=== PATIENT | female | born 1980 | race African-American/Black ===

== ENCOUNTER 2017-10-18 14:59 | Inpatient (IN) | payer SELFPAY ==
[2017-10-18] MEDS ORDERED: diphenhydrAMINE 25 MG CAP ONE (15:28)
[2017-10-18] MEDS ORDERED: cloNIDine 0.1 MG TAB ONE (15:28)
[2017-10-18] MEDS ORDERED: Metoclopramide HCl 10 MG/2 ML VIAL ONE (15:28)
[2017-10-18 17:39] LABS: Troponin I 0.017 ng/mL (< 0.028)
[2017-10-18] MEDS ORDERED: Acetaminophen 325 MG TAB PO PRN (17:48)
--- NOTE | 2017-10-18 17:48 | PDOC.EVN ---
Event Note - Event Note Event Note: [id number] H&P Dictated 1. HTN urgency 2. Abnormal EKG 3. GELA plan: see orders
--- NOTE | 2017-10-18 19:25 | ULT ---
RENAL ULTRASOUND 10/18/17 INDICATION: Acute renal insufficiency. FINDINGS: No overt hydronephrosis of either kidney. Left kidney measures 10 cm in length and right kidney 8.5 c m in length as demonstrated. There is no overt hydronephrosis. The urinary bladder is not reliably as sessed as it is incompletely distended on the basis of this exam. IMPRESSION: 1. No overt hydronephrosis. 2. Small sized kidneys. Correlate clinically. POS: [facility]
[2017-10-18 19:50] VITALS: BMI 34.1
[2017-10-18] MEDS ORDERED: Sodium Chloride 0.9% 10 ML ONE (20:16)
[2017-10-18 20:28] LABS: Troponin I 0.025 ng/mL (< 0.028)
[2017-10-18] MEDS: Sodium Chloride 0.9% 1,000 ML IV SCH (20:54)
[2017-10-18] MEDS: Heparin 5,000 UNITS/ML VIAL SC SCH (20:55)
--- NOTE | 2017-10-18 23:13 | HP ---
DATE OF ADMISSION: 10/18/2017 CHIEF COMPLAINT: Headache. HISTORY OF PRESENT ILLNESS: The patient is a 37-year-old female with past medical history of hyperte nsion, currently not taking any medications, came today complaining of headache. Headache started al l of a sudden, left-sided headache for the last 2 days, and a dull kind of headache, moderate in inte nsity, currently 4/10. Denies any radiation. Pain is improving. Denies any nausea. Denies any vom iting. Denies any weakness. Denies any dizziness. Denies any blurred vision. The patient initiall y went to the outside ER and the patient was found to have elevated blood pressure, so the patient wa s transferred here. The patient denies any chest pain. Denies any palpitations. PAST MEDICAL HISTORY: Hypertension. PAST SURGICAL HISTORY: Tubal ligation, breast reduction. 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 SOCIAL HISTORY: Positive for alcohol. Denies smoking. Denies drugs. REVIEW OF SYSTEMS: Constitutional: Denies any fever. Denies any chills. Eyes: No vision problem. Ears: Denies hear ing loss. Neck: Denies any neck pain. Cardiovascular: Denies any chest pain. Denies any palpitat ions. Respiratory: Denies any cough or sputum production. Gastrointestinal: Denies nausea or vomi ting. Musculoskeletal: Denies any joint deformities. Cranial nerve system: Positive for headache. Psychiatric: Denies anxiety. All other review of systems are reviewed and are negative. PHYSICAL EXAMINATION: CONSTITUTIONAL/VITAL SIGNS: At the time of H&P performed, blood pressure was 137/80, afebrile, respi ratory rate 18, pulse ox 97%. GENERAL: The patient appears comfortable. HEENT: Pupils equal, round, and reactive. Anterior nares patent. Nose normal. Ears normal. Teeth intact. Tongue is moist. NECK: Supple. No JVD. CARDIOVASCULAR: S1, S2 present. Regular rate and rhythm. No murmurs, no rubs, no gallops. RESPIRATORY: No wheezing, no rhonchi. Breath sounds bilaterally. GASTROINTESTINAL: Abdomen is soft, nontender. No guarding, no rebound, no masses felt. MUSCULOSKELETAL: No edema. CRANIAL NERVE SYSTEM: Cranial nerves intact. Follows commands. Strength intact. Sensory intact. PSYCHIATRIC: Mood is appropriate at this time. INTEGUMENTARY: No rashes seen. LABORATORY DATA: Labs at the time of H&P performed showed troponin 0.017. BMP showed sodium 138, po tassium 3.8, chloride 103, CO2 of 23, BUN of 13, creatinine 1.81. Urine negative. White c ount 8.2, hemoglobin 13.3, platelet count 219. EKG showed T-wave inversions in V4, V5, V6. ASSESSMENT AND PLAN: The patient is a 37-year-old female. 1. Hypertension, uncontrolled. Plan to start the patient on blood pressure medications. Plan to mo nitor blood pressure closely. 2. Abnormal EKG, might be secondary to this elevated blood pressure. We will check serial cardiac e nzymes. We will check 2D echo to evaluate LV function. 3. Acute kidney injury. Monitor creatinine closely. Repeat BMP in a.m. Continue IV fluids. Plan to check renal ultrasound. 4. Headache. CT head is negative for acute disease. We will monitor the patient closely. Case was discussed in detail with the patient.
[2017-10-19 00:41] LABS: Creatinine, Urine 404.33 mg/dL (47-110)
[2017-10-19 01:05] LABS: Bacteria/HPF Rare-Few HPF (None Seen); RBC/HPF 0-3 HPF (0-3); Squamous Epithelial 0-3 HPF (0-3); WBC/HPF 0-3 HPF (0-3)
[2017-10-19 05:20] LABS: #Basophils 0.1 thou/uL (0.0-0.2); #Eosinphils 0.1 thou/uL (0.0-0.7); #Lymphocytes 2.6 thou/uL (1.20-3.40); #Monocytes 0.5 thou/uL (0.11-0.59); #Neutrophils 3.7 thou/uL (1.40-6.50); %Basophils 1.1 % (0.0-1.0); %Eosinophils 1.1 % (0.0-10.0); %Lymphocytes 37.9 % (21.0-51.0); %Monocytes 7.1 % (0.0-10.0); %Neutrophils 52.8 % (42.0-75.0); Hemoglobin 10.4 g/dL (12.0-16.0); Mean Corpuscular HGB CONC 35.3 g/dL (32.0-36.0); Mean Corpuscular Hemoglobin 29.5 pg (27.0-31.0); Mean Corpuscular Volume 83.6 fl (81.0-99.0); Mean Platelet Volume 7.9 fL (7.4-10.4); Platelet Count 211 thou/uL (130-400); RBC Distribution Width 13.1 % (11.5-14.5); Red Blood Cell (RBC) Count 3.53 mill/uL (4.20-5.40); White Blood Cell (WBC) Count 6.9 thou/uL (4.8-10.8)
[2017-10-19 05:44] LABS: Anion Gap 7 mmol/L (10-20); BUN (Urea Nitrogen) 17 mg/dL (7.0-18.7); Calc. Creatinine Clearance 68 mL/min (70-130); Calcium 8.3 mg/dL (7.8-10.44); Carbon Dioxide 24 mmol/L (22-29); Chloride 108 mmol/L (98-107); Estimated GFR-MDRD 39; Glucose 104 mg/dL (70-105); Potassium 3.4 mmol/L (3.5-5.1); Sodium 136 mmol/L (136-145)
[2017-10-19] MEDS: Carvedilol 6.25 MG TAB PO SCH ×2 (08:50→16:54)
[2017-10-19] MEDS: Lisinopril 5 MG TAB PO SCH (08:50)
[2017-10-19] MEDS: Heparin 5,000 UNITS/ML VIAL SC SCH ×3 (08:51→19:59)
[2017-10-19] MEDS ORDERED: Amlodipine 5 MG TAB PO SCH (09:00)
[2017-10-19] MEDS: hydrALAZINE 20 MG/ML VIAL SLOW IVP PRN (14:14)
--- NOTE | 2017-10-19 15:17 | PDOC.PN ---
- Subjective Encounter Start Date: 10/19/17 Encounter Start Time: 15:15 Subjective: feels better.reprots that she stopped taking lisinopril few months ago - Objective MAR Reviewed: Yes Vital Signs & Weight: Vital Signs (12 hours) Temp Pulse Resp BP Pulse Ox 10/19/17 11:25 98.7 F 70 16 162/101 H 96 10/19/17 08:53 98.6 F 87 18 100 10/19/17 08:49 98.6 F 87 18 177/103 H 100 10/19/17 04:00 98.7 F 74 18 152/94 H 99 Weight Weight 216 lb 4.8 oz I&O: 10/18/17 10/19/17 10/20/17 06:59 06:59 06:59 Intake Total 1383 Output Total 950 Balance 433 Result Diagrams: 10/19/17 04:53 10/19/17 04:53 Phys Exam - Physical Examination Constitutional: NAD HEENT: PERRLA, moist MMs, sclera anicteric, oral pharynx no lesions Neck: no nodes, no JVD, supple, full ROM Respiratory: no wheezing, no rales, no rhonchi, clear to auscultation bilateral Cardiovascular: RRR, no significant murmur Gastrointestinal: soft, non-tender, no distention, positive bowel sounds Musculoskeletal: no edema, pulses present Neurological: non-focal, normal sensation, moves all 4 limbs Psychiatric: normal affect, A&O x 3 Skin: no rash Dx/Plan (1) Hypertensive urgency Code(s): I16.0 - HYPERTENSIVE URGENCY Status: Acute (2) [id number] kidney injury Code(s): N17.9 - ACUTE KIDNEY FAILURE, UNSPECIFIED; N18.9 - CHRONIC KIDNEY DISEASE, UNSPECIFIED Status: Acute Qualifiers: Chronic kidney disease stage: stage 2 (mild) (3) Obesity (BMI 30.0-34.9) Code(s): E66.9 - OBESITY, UNSPECIFIED Status: Acute - Plan out of bed/ambulate, DVT proph w/SCDs BP still very high.change Amlodipine to lisinopri as it is affordable carola -: cont coreg.adjust ads needed -: renal US c/w CKD.pt educated to f/u w PCP & Renal if possible. -: angelica Hypertensive nephropathy -: add prn anti-hypertensives but prevent aggressive lowering of BP * .cont to monitor closely Review of Systems - Review of Systems Constitutional: negative: fever, chills, sweats, weakness, malaise, other ENT: negative: Ear Pain, Ear Discharge, Nose Pain, Nose Discharge, Nose Congestion, Mouth Pain, Mouth Swelling, Throat Pain, Throat Swelling, Other Respiratory: negative: Cough, Dry, Shortness of Breath, Hemoptysis, SOB with Excertion, Pleuritic Pain, Sputum, Wheezing Cardiovascular: negative: chest pain, palpitations, orthopnea, paroxysmal nocturnal dyspnea, edema, light headedness, other Gastrointestinal: negative: Nausea, Vomiting, Abdominal Pain, Diarrhea, Constipation, Melena, Hematochezia, Other Genitourinary: negative: Dysuria, Frequency, Incontinence, Hematuria, Retention , Other Musculoskeletal: negative: Neck Pain, Shoulder Pain, Arm Pain, Back Pain, Hand Pain, Leg Pain, Foot Pain, Other Skin: negative: Rash, Lesions, Tye, Bruising, Other Neurological: negative: Weakness, Numbness, Incoordination, Change in Speech, Confusion, Seizures, Other - Medications/Allergies Allergies/Adverse Reactions: Allergies Allergy/AdvReac Type Severity Reaction Status Date / Time No Known Allergies Allergy Verified 10/18/17 20:47 Medications: Current Medications Acetaminophen (Tylenol) 650 mg PO Q4H PRN PRN Reason: Headache/Fever or Pain Last Admin: 10/19/17 14:15 Dose: 650 mg Carvedilol (Coreg) 6.25 mg PO BID-[facility] Last Admin: 10/19/17 08:50 Dose: 6.25 mg Heparin Sodium (Porcine) (Heparin) 5,000 units SC TID [facility] Last Admin: 10/19/17 08:51 Dose: Not Given Hydralazine HCl (Apresoline) 10 mg SLOW IVP Q4H PRN PRN Reason: SBP Greater Than 170 Last Admin: 10/19/17 14:14 Dose: 10 mg Sodium Chloride (Normal Saline 0.9%) 1,000 mls @ 50 mls/hr IV .Q20H [facility] Last Admin: 10/18/17 20:54 Dose: 1,000 mls Lisinopril (Zestril) 5 mg PO DAILY [facility] Last Admin: 10/19/17 08:50 Dose: 5 mg Ondansetron HCl (Zofran) 4 mg IVP Q6H PRN PRN Reason: Nausea/Vomiting
--- NOTE | 2017-10-19 15:37 | EKG ---
Test Reason : Blood Pressure : / mmHG Vent. Rate : 094 BPM Atrial Rate : 094 BPM P-R Int : 150 ms QRS Dur : 072 ms QT Int : 346 ms P-R-T Axes : 029 006 -28 degrees QTc Int : 432 ms Normal sinus rhythm Possible Left atrial enlargement Left ventricular hypertrophy Nonspecific T wave abnormality Abnormal ECG Confirmed by DEON VEGA, HUA Freedman ([id number]), acquisition editor MARILYN REDDY ([id number]) on 10/19/2017 3:37:02 PM Referred By: Confirmed By:HUA CHAVARRIA MD
[2017-10-19] MEDS ORDERED: Ibuprofen 200 MG TAB PO PRN ×3 (16:20→21:32)
[2017-10-19] MEDS: Sodium Chloride 0.9% 1,000 ML IV SCH (16:54)
[2017-10-19] MEDS: traMADol HCl 50 MG TAB PO PRN (16:54)
[2017-10-19] MEDS ORDERED: Sodium Chloride 0.9% 10 ML ONE ×2 (19:56→20:25)
[2017-10-19] MEDS: Ondansetron HCl/PF 4 MG/2 ML Vial IVP PRN (19:59)
[2017-10-19] MEDS ORDERED: Atorvastatin Calcium 10 MG TAB PO SCH (21:15)
[2017-10-19] MEDS ORDERED: Gabapentin 300 MG CAP PO SCH (21:15)
[2017-10-20 08:34] LABS: Anion Gap 11 mmol/L (10-20); BUN (Urea Nitrogen) 11 mg/dL (7.0-18.7); Calc. Creatinine Clearance 72 mL/min (70-130); Calcium 8.8 mg/dL (7.8-10.44); Carbon Dioxide 22 mmol/L (22-29); Chloride 106 mmol/L (98-107); Estimated GFR-MDRD 43; Glucose 92 mg/dL (70-105); Potassium 4.1 mmol/L (3.5-5.1); Sodium 135 mmol/L (136-145)
[2017-10-20] MEDS: Carvedilol 6.25 MG TAB PO SCH ×2 (09:31→16:34)
[2017-10-20] MEDS: Lisinopril 5 MG TAB PO SCH ×2 (09:34→20:40)
[2017-10-20] MEDS: Heparin 5,000 UNITS/ML VIAL SC SCH ×3 (09:35→20:41)
[2017-10-20] MEDS: traMADol HCl 50 MG TAB PO PRN ×2 (09:38→17:40)
[2017-10-20] MEDS: hydrALAZINE 20 MG/ML VIAL SLOW IVP PRN (11:40)
--- NOTE | 2017-10-20 12:59 | PDOC.PN ---
- Subjective Encounter Start Date: 10/20/17 Encounter Start Time: 12:57 Subjective: feels better.on and off headache - Objective MAR Reviewed: Yes Vital Signs & Weight: Vital Signs (12 hours) Temp Pulse Resp BP BP Pulse Ox 10/20/17 11:40 61 183/116 H 10/20/17 11:36 98.7 F 61 16 183/116 H 100 10/20/17 09:34 80 10/20/17 09:31 182/115 H 10/20/17 08:15 98 F 61 20 175/95 H 99 10/20/17 03:43 97.5 F L 80 20 146/88 H 99 Weight Weight 212 lb 6.4 oz I&O: 10/19/17 10/20/17 10/21/17 06:59 06:59 06:59 Intake Total 1383 312 Output Total 950 500 Balance 433 -188 Result Diagrams: 10/19/17 04:53 10/20/17 07:50 Phys Exam - Physical Examination Constitutional: NAD HEENT: PERRLA, moist MMs, sclera anicteric, oral pharynx no lesions Neck: no nodes, no JVD, supple, full ROM Respiratory: no wheezing, no rales, no rhonchi, clear to auscultation bilateral Cardiovascular: RRR, no significant murmur Gastrointestinal: soft, non-tender, no distention, positive bowel sounds Musculoskeletal: no edema, pulses present Neurological: non-focal, normal sensation, moves all 4 limbs Psychiatric: normal affect, A&O x 3 Skin: no rash Dx/Plan (1) Hypertensive urgency Code(s): I16.0 - HYPERTENSIVE URGENCY Status: Acute (2) [id number] kidney injury Code(s): N17.9 - ACUTE KIDNEY FAILURE, UNSPECIFIED; N18.9 - CHRONIC KIDNEY DISEASE, UNSPECIFIED Status: Acute Qualifiers: Chronic kidney disease stage: stage 2 (mild) (3) Obesity (BMI 30.0-34.9) Code(s): E66.9 - OBESITY, UNSPECIFIED Status: Acute - Plan out of bed/ambulate, DVT proph w/SCDs DC home if BP better controlled.prn meds as ordered -: pt educated about need for PCP f/u & med compliance * . Review of Systems - Review of Systems Constitutional: negative: fever, chills, sweats, weakness, malaise, other Eyes: negative: Pain, Vision Change, Conjunctivae Inflammation, Eyelid Inflammation, Redness, Other ENT: negative: Ear Pain, Ear Discharge, Nose Pain, Nose Discharge, Nose Congestion, Mouth Pain, Mouth Swelling, Throat Pain, Throat Swelling, Other Respiratory: negative: Cough, Dry, Shortness of Breath, Hemoptysis, SOB with Excertion, Pleuritic Pain, Sputum, Wheezing Cardiovascular: negative: chest pain, palpitations, orthopnea, paroxysmal nocturnal dyspnea, edema, light headedness, other Gastrointestinal: negative: Nausea, Vomiting, Abdominal Pain, Diarrhea, Constipation, Melena, Hematochezia, Other Genitourinary: negative: Dysuria, Frequency, Incontinence, Hematuria, Retention , Other Musculoskeletal: negative: Neck Pain, Shoulder Pain, Arm Pain, Back Pain, Hand Pain, Leg Pain, Foot Pain, Other Skin: negative: Rash, Lesions, Tye, Bruising, Other Neurological: negative: Weakness, Numbness, Incoordination, Change in Speech, Confusion, Seizures, Other - Medications/Allergies Allergies/Adverse Reactions: Allergies Allergy/AdvReac Type Severity Reaction Status Date / Time No Known Allergies Allergy Verified 10/18/17 20:47 Medications: Current Medications Acetaminophen (Tylenol) 650 mg PO Q4H PRN PRN Reason: Headache/Fever or Pain Last Admin: 10/19/17 14:15 Dose: 650 mg Carvedilol (Coreg) 6.25 mg PO BID-[facility] Last Admin: 10/20/17 09:31 Dose: 6.25 mg Heparin Sodium (Porcine) (Heparin) 5,000 units SC TID [facility] Last Admin: 10/20/17 09:35 Dose: Not Given Hydralazine HCl (Apresoline) 10 mg SLOW IVP Q4H PRN PRN Reason: SBP Greater Than 170 Last Admin: 10/20/17 11:40 Dose: 10 mg Ibuprofen (Motrin) 200 mg PO Q12H PRN PRN Reason: headache Lisinopril (Zestril) 5 mg PO DAILY [facility] Last Admin: 10/20/17 09:34 Dose: 5 mg Ondansetron HCl (Zofran) 4 mg IVP Q6H PRN PRN Reason: Nausea/Vomiting Last Admin: 10/19/17 19:59 Dose: 4 mg Tramadol HCl (Ultram) 50 mg PO Q6H PRN PRN Reason: Pain Last Admin: 10/20/17 09:38 Dose: 50 mg
[2017-10-20] MEDS: cloNIDine 0.1 MG TAB PO PRN (14:52)
[2017-10-20] MEDS: Ondansetron HCl/PF 4 MG/2 ML Vial IVP PRN (14:55)
[2017-10-20] MEDS ORDERED: Sodium Chloride 0.9% 10 ML ONE (20:31)
[2017-10-20] MEDS ORDERED: Atorvastatin Calcium 10 MG TAB PO SCH (21:00)
[2017-10-21] MEDS: cloNIDine 0.1 MG TAB PO PRN ×2 (00:25→11:54)
[2017-10-21] MEDS: Lisinopril 5 MG TAB PO SCH (08:21)
[2017-10-21] MEDS: Carvedilol 6.25 MG TAB PO SCH (08:21)
[2017-10-21] MEDS: Heparin 5,000 UNITS/ML VIAL SC SCH (08:22)
[2017-10-21 08:28] VITALS: TEMP 98.2
[2017-10-21 12:53] VITALS: BP 168/107
--- NOTE | 2017-10-21 13:19 | DIS ---
DATE OF ADMISSION: 10/18/2017 DATE OF DISCHARGE: 10/21/2017 CONDITION AT THE TIME OF DISCHARGE: Stable and improved. DISCHARGE DIAGNOSES: 1. Uncontrolled hypertension with hypertensive urgency. 2. Acute on chronic kidney disease. 3. Obesity. DISCHARGE MEDICATIONS: As follows, lisinopril 5 mg p.o. b.i.d., carvedilol 6.25 mg p.o. b.i.d., and clonidine 0.1 mg every 4 hours as needed for systolic blood pressure more than 180 or diastolic blood pressure more than 90. DISCHARGE DISPOSITION: Home. PRIMARY CARE PHYSICIAN: The patient does not have one, but was set up appointments close to her [facility] in [place]. PROCEDURES IN THE HOSPITAL. Renal ultrasound, which shows bilateral small kidneys, otherwise unremar kable. HISTORY OF PRESENT ILLNESS: Ms. Cole is a 37-year-old -[place] female with known history of hypertension, who was rather noncompliant with her medications, who came in with complaints of he adache and was found to have significantly elevated blood pressures and was admitted for further eval uation and control of hypertensive urgency. Please see admission history and physical for further de tails. The patient was found to have elevated creatinine of 1.81 with a BUN of 13. Her EKG was some what abnormal with T-wave inversions as well. HOSPITAL COURSE: The patient had some difficulty controlling her blood pressure while in the [facility]. She was started on carvedilol and lisinopril and the medication dosages were adjusted. She requi red multiple days stay to get her blood pressure under decent control without aggressive lowering of the blood pressure. Eventually, she was stabilized and prescriptions were provided. Her symptoms mireles ve improved. She was noticed to have elevated creatinine consistent with acute on chronic kidney disease, likely h ypertensive nephropathy. She was made aware of this and was instructed to follow with the primary ct re physician for routine workup and eventual referral to Nephrology if needed. She verbalized unders tanding. Medication compliance was emphasized and she seems very inclined at this time to continue t o take her medications. She was seen and examined prior to discharge. She is very eager to go home and is feeling much carola r and back to her baseline. PHYSICALE XAMINATION: VITAL SIGNS: Temperature 98.2, pulse of 62, respirations 16, saturating 100% on room air, and blood pressure 168/107. GENERAL: No acute distress, awake, alert, and oriented x3. CHEST: Clear to auscultation without any wheezing, rales, or rhonchi. Rhythm is regular without any murmur, rubs or gallops. At this time, the patient's blood pressure is still on the higher side, but she will take clonidine a s needed basis, which was also given prior to her discharge. I discussed the importance of getting t he blood pressure under control, but not too aggressively. She is also instructed to buy a blood pre ssure checking machine at home and record the blood pressure and come back to the emergency room if i t is dangerously high. She verbalized understanding. Total time spent in the discharge 32 minutes.
== END 2017-10-21 12:49 | disposition home or self-care (01) | DRG 305 ==
LOC: ERS 14:59 → 2NO 16:52
PROVIDERS: ADMIT Internal Medicine; ATTEND Internal Medicine
DX: I16.0 Hypertensive urgency (principal); N17.9 Acute kidney failure, unspecified; E66.9 Obesity, unspecified; Z68.32 Body mass index [BMI] 32.0-32.9, adult; I12.9 Hypertensive chronic kidney disease with stage 1 through stage 4 chronic kidney disease, or unspecified chronic kidney disease; Z91.14 Patient's other noncompliance with medication regimen; N18.2 Chronic kidney disease, stage 2 (mild)
CPT/HCPCS: 36415; 76770; 80048; 81015; 82570; 84300; 85025; 93005; 96361; 96374; A4216; J0360; J1644; J2405; J2765